=== PATIENT | female | born 1985 | race Caucasian/White ===

== ENCOUNTER 2023-12-10 13:14 | Outpatient (AMB) | payer OTHER, SELFPAY ==
--- NOTE | 2023-12-10 13:15 | A.OFFVIS_ITS ---
Vital Signs 12/10/23 13:16 Height 5 ft 5 in Weight 240 lb 4.862 oz BMI 40.0 BP 118/90 H Blood Pressure Location Lt brachial Position Sitting Pulse 95 Pulse Source Pulse Oximeter Intake Visit Reasons: PCOS, Obesity-lvm Intake Note: New patient present today for PCOS and obesity office visit. 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 Saw [facility] Reproductive Dr. Lantigua Menarche was age 11 . Menses have been irregular. Menses 2-3 per yr OCP use: in past but not recently Metformin use: Currently on Weight gain: . Weight loss occurred over 4 mos intentionally . Patient has tried diets of healthy eating . Exercises 1 mi /20 mintes day . Has tried weight loss medications. Has not seen a blast furnace helper Hirsutism/hyperandrogenism: On spironolactone for hiradenitis which has helped Not Trying to conceive/clomiphene: Ovarian U/S: Has T2DM or acanthosis: No but family hx of Type 2 DM Has sleep apnea , Not using CPAP Labs: [facility] Medical History (Updated 12/10/23 @ 14:07 by Zion Mac MD) Polycystic ovarian disease Obesity Surgical History (Updated 12/10/23 @ 13:24 by OZZIE Donohue) Hx of cholecystectomy Family History (Updated 12/10/23 @ 13:26 by OZZIE Donohue) Mother Hypertension Asthma Father Diabetes Stroke Thyroid disease Social History Alcohol intake: current Alcohol intake frequency: holidays/special occasions only Patient Tobacco Use Status: Never used Tobacco Physical Exam Const Other: There are no cushingoid features. Thyroid gland is normal size weighs about 15 g. There is no hair growth present Assessment & Plan Assessment & Plan (1) Hyperandrogenism: Code(s): E28.8 - Other ovarian dysfunction Plan: This is a 38-year-old female with a history of hyperandrogenism/PCOS and obesity. Rule out secondary causes. Currently being treated with metformin and spironolactone Plan is to check a TSH, free T4, testosterone, DHEA-S. Will send to blast furnace helper (2) Obesity: Code(s): E66.9 - Obesity, unspecified Category: Medical Plan: Treatment as per PCOS below (3) Polycystic ovarian disease: Code(s): E28.2 - Polycystic ovarian syndrome Category: Medical Plan: This is a 38-year-old white female with a history of polycystic ovarian syndrome previously worked up by reproductive endocrine. She has underlying obesity. She is currently being treated with metformin and spironolactone. The plan is to obtain the records reproductive endocrinology containing the previous workup for PCOS. We will continue the metformin and spironolactone. We will referred to our blast furnace helper. We will also startZepbound 2.5 mg Q weekly and titrate as tolerated. Went over side effects of Zepbound including but not limited to nausea, vomiting and rare risk of pancreatitis. Also talk to patient about talking to unhairing inspector about starting low-dose control pill . Also told patient to follow-up with sleep medicine for treatment of sleep apnea. Orders: Orders Hemoglobin A1c Today E66.9 - Obesity, unspecified Glucose Random Today E66.9 - Obesity, unspecified Referrals Nutrition/Dietitian Referral E66.9 - Obesity, unspecified Medications: New tirzepatide (weight loss) (Zepbound) 2.5 mg (0.5 mL) subcut QWEEK 4 weeks 2 mL 5RF Coding Level of Care Code New Pt Level 4 (53989) Diagnoses Hyperandrogenism E28.8 Obesity E66.9 Polycystic ovarian disease E28.2
[2023-12-10 13:16] VITALS: BP 118/90; PULSE 95; BMI 40.0
== END 2023-12-10 14:05 | disposition home or self-care (01) ==
PROVIDERS: PCP Nurse Practitioner Family; Visit Provider Internal Medicine Endocrinology, Diabetes & Metabolism
DX: E28.8 Other ovarian dysfunction (principal); E66.9 Obesity, unspecified; E28.2 Polycystic ovarian syndrome
CPT/HCPCS: 99204

== ENCOUNTER → 2023-12-10 13:14 | Outpatient (BNVA) | payer OTHER, SELFPAY | PROVIDERS: PCP Nurse Practitioner Family; Visit Provider Internal Medicine Endocrinology, Diabetes & Metabolism ==

== ENCOUNTER 2024-04-11 07:48 | Outpatient (AMB) | payer OTHER, SELFPAY ==
--- NOTE | 2024-04-11 07:56 | MHC.OFFVIS ---
Vital Signs 04/11/24 08:03 Height 5 ft 5 in Weight 216 lb 14.958 oz BMI 36.1 BP 126/68 Blood Pressure Location Rt brachial Position Sitting Pulse 94 Pulse Source Pulse Oximeter Intake Visit Reasons: f/u PCOS/obesity Intake Note: Patient present today for PCOS and Obesity follow up. 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 Saw [facility] Reproductive Dr. Lantigua Menarche was age 11 . Menses have been irregular. Menses 2-3 per yr OCP use: in past but not recently Metformin use: Currently on Weight gain: . Weight loss occurred over 4 mos intentionally . Patient has tried diets of healthy eating . Exercises 1 mi /20 mintes day . Has tried weight loss medications. Has not seen a assembler lay ups Hirsutism/hyperandrogenism: On spironolactone for hiradenitis which has helped Not Trying to conceive/clomiphene: Ovarian U/S: Has T2DM or acanthosis: No but family hx of Type 2 DM Has sleep apnea , Not using CPAP Labs: Saxenda 3 mg QD . Nl menses on BCP. Wt loss of 36 lbs. Hair growth controlled with sprironolactone . Needs to f/u with sleep medicine [facility] Medical History (Updated 12/10/23 @ 14:07 by Zion Mac MD) Polycystic ovarian disease Obesity Surgical History Hx of cholecystectomy Family History Mother Hypertension Asthma Father Diabetes Stroke Thyroid disease Social History Alcohol intake: current Alcohol intake frequency: holidays/special occasions only Patient Tobacco Use Status: Never used Tobacco Physical Exam Vital Signs: BMI result Body Mass Index 36.1 Assessment & Plan Assessment & Plan (1) Polycystic ovarian disease: Code(s): E28.2 - Polycystic ovarian syndrome Category: Medical Plan: This is a 39-year-old white female with a history of polycystic ovarian syndrome previously worked up by reproductive endocrine. She has underlying obesity. She is currently being treated with metformin and spironolactone as well as Saxenda. Insurance would not cover other G LP 1. The plan is to continue the current regimen. Also told patient to follow-up with sleep medicine for treatment of sleep apnea. Otherwise, at this point, patient can follow up with the primary care provider as well as practice consultant follow-up with endocrinology as needed Medications: Refilled liraglutide (weight loss) (Saxenda) subcutaneously daily; 1.8mg, starting 01/14/2024 . Starting 01/20 2.4 mg and 3mg starting 01/27 15 mL 5RF Coding Level of Care Code Est Pt Level 3 (38396) Diagnoses Polycystic ovarian disease E28.2
[2024-04-11 08:03] VITALS: BP 126/68; PULSE 94; BMI 36.1
== END 2024-04-11 08:15 | disposition home or self-care (01) ==
PROVIDERS: PCP Nurse Practitioner Family; Visit Provider Internal Medicine Endocrinology, Diabetes & Metabolism
DX: E28.2 Polycystic ovarian syndrome (principal)
CPT/HCPCS: 99213

== ENCOUNTER → 2024-04-11 07:48 | Outpatient (BNVA) | payer OTHER, SELFPAY | PROVIDERS: PCP Nurse Practitioner Family; Visit Provider Internal Medicine Endocrinology, Diabetes & Metabolism ==

== ENCOUNTER 2024-10-19 07:53 | Outpatient (AMB) | payer OTHER, SELFPAY ==
[2024-10-19 07:55] VITALS: BP 106/74; PULSE 74; O2SAT 100; BMI 31.3
--- NOTE | 2024-10-19 07:55 | A.OFFVIS_ITS ---
Vital Signs 10/19/24 07:55 Height 5 ft 5 in Weight 187 lb 13.341 oz BMI 31.3 BP 106/74 Blood Pressure Location Rt brachial Position Sitting Pulse 74 Pulse Source Pulse Oximeter Pulse Oximetry (%) 100 Oxygen Delivery Method Room Air Intake Visit Reasons: PCOS/Obesity Medication change Intake Note: Patient present today to re-establish care for PCOS/ Obesity. Director Of Automation Required: No Accompanied by: Self / Same As Patient Allergies Sulfa (Sulfonamide Antibiotics) Allergy (Intermediate, Verified 10/19/24 07:57) Rash letrozole Allergy (Mild, Verified 10/19/24 07:57) Dizziness HPI Comments Details: 39 YO Female with PMHx who is seen in consultation at the request of her PCP for[PCOS. Saw [facility] Reproductive Dr. Lantigua Menarche was age 11 . Menses have been irregular. Menses 2-3 per yr OCP use: in past but not recently Metformin use: Currently on Weight gain: . Weight loss occurred over 4 mos intentionally . Patient has tried diets of healthy eating . Exercises 1 mi /20 mintes day . Has tried weight loss medications. Has not seen a molder closed molds Hirsutism/hyperandrogenism: On spironolactone for hiradenitis which has helped Not Trying to conceive/clomiphene: Ovarian U/S: Has T2DM or acanthosis: No but family hx of Type 2 DM Has sleep apnea , Not using CPAP Labs: Saxenda 3 mg QD . Nl menses on BCP. Wt loss of 36 lbs. Hair growth controlled with sprironolactone . Wants to change from Saxenda to once weekly The patient is a 39-year-old female presenting with a request to switch from daily Saxenda to a once-weekly weight loss medication due to difficulty remembering daily doses. She has experienced significant weight loss with Saxenda, dropping from 250 to 187 pounds. Despite its effectiveness, the patient's demanding work schedule, involving two jobs, poses a challenge to daily compliance. Initial nausea with Saxenda has subsided over time. She has not engaged in nutritional counseling recently, which is essential for transitioning to other weight management medications. The patient is aware of potential insurance hurdles and cost implications with alternatives like Zepbound. She manages PCOS symptoms with Spironolactone and is considering an IUD for contraception. - Saxenda: Effective for weight loss, initial nausea resolved, compliance challenging due to daily dosing. - Spironolactone: Used for PCOS, effective in managing hair growth. [facility] Medical History (Updated 12/10/23 @ 14:07 by Zion Mac MD) Polycystic ovarian disease Obesity Surgical History Hx of cholecystectomy Family History Mother Hypertension Asthma Father Diabetes Stroke Thyroid disease Social History Alcohol intake: current Alcohol intake frequency: holidays/special occasions only Patient Tobacco Use Status: Never used Tobacco Physical Exam Vital Signs: BMI result Body Mass Index 31.3 Assessment & Plan Assessment & Plan (1) Polycystic ovarian disease: Code(s): E28.2 - Polycystic ovarian syndrome Category: Medical Plan: This is a 39-year-old white female with a history of polycystic ovarian syndrome previously worked up by reproductive endocrine. She has underlying obesity. She is currently being treated with metformin and spironolactone as well as Saxenda. Insurance would not cover other G LP 1. 1. Obesity The patient has successfully lost weight with Saxenda but struggles with daily dosing compliance. We discussed alternatives like Zepbound and Wegovy, considering insurance challenges and costs. Nutritional counseling is advised for six months to aid in medication approval. The patient may consider direct purchase of Zepbound if insurance denies coverage. 2. Polycystic Ovary Syndrome (PCOS) PCOS is managed with Spironolactone. The patient is considering an IUD for contraception. We discussed the benefits of estrogen-containing contraceptives for managing PCOS symptoms. The patient was warned once again not to get on the spironolactone We discussed the patient's desire to switch from Saxenda to a once-weekly weight loss medication due to challenges with daily compliance. I explained the effectiveness of Saxenda in achieving weight loss and the alternative options like Zepbound and Wegovy, while highlighting the potential insurance difficulties and costs. Nutritional counseling was recommended as a necessary step for medication approval. We also reviewed the management of PCOS with Spironolactone and discussed contraceptive options, including the benefits of an IUD and estrogen-containing contraceptives. The patient was informed about the risks, benefits, and alternatives of each option, and we agreed on a plan to pursue nutritional counseling and explore insurance options for a switch in medication. - Continue taking Saxenda as prescribed until further notice. - Schedule an appointment with a molder closed molds for counseling. - Consider insurance options for once-weekly weight loss medications. - Explore direct purchase options if insurance is denied. - Discuss contraceptive options with a floor covering printer, considering an IUD or estrogen-containing contraceptives. - Follow up in four months or sooner if there are any issues with medication access or management. The patient had an opportunity to ask questions regarding treatment plan. The patient expressed understanding and agreement with the above treatment plan. Patient was informed and verbally consented to the use of an ambient scribe for clinic note documentation during this visit. Orders: Referrals Nutrition/Dietitian Referral E28.2 - Polycystic ovarian syndrome, E66.9 - Obesity, unspecified Medications: New tirzepatide (weight loss) (Zepbound) for 4 weeks 2.5 mg (0.5 mL) subcut QWEEK 2 mL 5RF Discontinued liraglutide (weight loss) (Saxenda) Discontinued Reason: Doctor's Order subcutaneously daily; 1.8mg, starting 01/14/2024 . Starting 01/20 2.4 mg and 3mg starting 01/27 15 mL 5RF Coding Level of Care Code Est Pt Level 3 (61203) Diagnoses Polycystic ovarian disease E28.2
--- OUTSIDE RECORDS SUMMARY | 2024-10-19 07:55 | XMS_ITS ---
Author Name [facility] Organization Unknown Problems Problem Status Onset Date Problem Type Date of Resoluti on Source Morbid obesity (HCC) active EncounterDiagnosisAct [facility]
== END 2024-10-19 08:14 | disposition home or self-care (01) ==
LOC: HO.ENCR 07:53
PROVIDERS: PCP Nurse Practitioner Family; Visit Provider Internal Medicine Endocrinology, Diabetes & Metabolism
DX: E28.2 Polycystic ovarian syndrome (principal)
CPT/HCPCS: 99213

== ENCOUNTER → 2024-10-19 07:53 | Outpatient (BNVA) | payer OTHER, SELFPAY | PROVIDERS: PCP Nurse Practitioner Family; Visit Provider Internal Medicine Endocrinology, Diabetes & Metabolism ==

== ENCOUNTER 2025-02-21 07:53 | Outpatient (AMB) | payer OTHER, SELFPAY ==
--- NOTE | 2025-02-21 07:55 | A.OFFVIS_ITS ---
Vital Signs 02/21/25 07:57 Height 5 ft 5 in Weight 173 lb 8.061 oz BMI 28.9 BP 94/62 Blood Pressure Location Lt brachial Position Sitting Pulse 90 Pulse Source Pulse Oximeter Pulse Oximetry (%) 95 Oxygen Delivery Method Room Air Intake Visit Reasons: PCOS/Obesity Intake Note: Patient present today to for PCOS/ Obesity. 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 Accompanied by: Self / Same As Patient Allergies Sulfa (Sulfonamide Antibiotics) Allergy (Intermediate, Verified 02/21/25 07:58) Rash letrozole Allergy (Mild, Verified 02/21/25 07:58) Dizziness Medication List - Last Reconciled 02/21/25 by Zion Mac MD adalimumab-atto (Amjevita(CF) Autoinjector) 80 mg subcut Q2W desogestrel-ethinyl estradiol 0.15-0.03 mg (Apri) 1 tab PO DAILY inulin (Fiber Gummies) grams PO levocetirizine (Xyzal) 5 mg PO DAILY metformin ER 500 mg PO BID pen needle, diabetic (Comfort EZ Pen [place]) As directed spironolactone 100 mg PO DAILY tirzepatide (weight loss) (Zepbound) 7.5 mg (0.5 mL) subcut QWEEK HPI Comments Details: 40 YO Female with PMHx who is seen in consultation at the request of her PCP for[PCOS. Saw [facility] Reproductive Dr. Lantigua Menarche was age 11 . Menses have been irregular. Menses 2-3 per yr OCP use: in past but not recently Metformin use: Currently on Zepbound 7.5 mg Qwkly Weight gain: . Weight loss occurred over 4 mos intentionally . Patient has tried diets of healthy eating . Exercises 1 mi /20 mintes day . Has tried weight loss medications. Has not seen a time buyer Hirsutism/hyperandrogenism: On spironolactone for hiradenitis which has helped Not Trying to conceive/clomiphene: Ovarian U/S: Has T2DM or acanthosis: No but family hx of Type 2 DM Has sleep apnea , Not using CPAP Labs: Zepbound 7.5 mg Qwkly .abnl menses on BCP. Wt loss . Hair growth controlled with sprironolactone . Wants to change from Saxenda to once weekly - Spironolactone: Used for PCOS, effective in managing hair growth. The patient is a 40-year-old female presenting with weight management concerns. She is currently taking Zepbound 7.5 mg for weight management, which she has been on for a month and is tolerating well. Her goal weight is 160 pounds, and she has lost 15 pounds since the last visit. The patient reports hair growth, which is being managed with spironolactone, and she is tolerating the medication well. She is not using oral contraceptives due to potential interactions with her current medications and has an IUD in place. The patient had an IUD placed on January 17 and has not experienced a menstrual period since, although she had some bleeding post-insertion. There is a concern for endometrial cancer risk due to the lack of menstruation, which requires monitoring. [facility] Medical History (Updated 12/10/23 @ 14:07 by Zion Mac MD) Polycystic ovarian disease Obesity Surgical History Hx of cholecystectomy Family History Mother Hypertension Asthma Father Diabetes Stroke Thyroid disease Social History Alcohol intake: current Alcohol intake frequency: holidays/special occasions only Patient Tobacco Use Status: Never used Tobacco Physical Exam Vital Signs: Last Vital Signs Pulse 90 02/21/25 07:57 BP 94/62 02/21/25 07:57 Pulse Ox 95 02/21/25 07:57 Oxygen Delivery Method Room Air 02/21/25 07:57 BMI result Body Mass Index 28.9 Assessment & Plan Assessment & Plan (1) Polycystic ovarian disease: Code(s): E28.2 - Polycystic ovarian syndrome Category: Medical Plan: This is a 39-year-old white female with a history of polycystic ovarian syndrome previously worked up by reproductive endocrine. She has underlying obesity. She is currently being treated with metformin and spironolactone as well as Zepbound 7.5 mg . 1. Weight management The patient is currently on Zepbound 7.5 mg, which she tolerates well. She has lost 15 pounds since the last visit. The plan is to increase dose to 10 mg continue monitoring her weight and adjust the medication dosage as needed. Follow-up is recommended in six months, with earlier contact if necessary. 2. Hair growth Managed with spironolactone, which the patient tolerates well. No changes in medication are necessary at this time. 3. Menstrual irregularities The patient has not had a menstrual period since IUD insertion, raising concerns about endometrial cancer risk. Monitoring is advised to ensure uterine shedding occurs to mitigate this risk. During the visit, we discussed the patient's current weight management plan with Zepbound and her progress in losing 15 pounds. We also reviewed the management of hair growth with spironolactone and the implications of her menstrual irregularities post-IUD insertion. I advised monitoring for uterine shedding to prevent endometrial cancer risk. Follow-up is planned in six months, with the option for earlier contact if needed. The patient had an opportunity to ask questions regarding treatment plan. The patient expressed understanding and agreement with the above treatment plan. Patient was informed and verbally consented to the use of an ambient scribe for clinic note documentation during this visit. Orders: Orders Basic Metabolic Panel Today E28.2 - Polycystic ovarian syndrome Medications: New tirzepatide (weight loss) (Zepbound) 10 mg (0.5 mL) subcut QWEEK 2 mL 5RF tirzepatide (weight loss) (Zepbound) 10 mg (0.5 mL) subcut QWEEK 2 mL 5RF Discontinued tirzepatide (weight loss) (Zepbound) Discontinued Reason: Doctor's Order 7.5 mg (0.5 mL) subcut QWEEK 2 mL 3RF Coding Level of Care Code Est Pt Level 3 (71628) Diagnoses Polycystic ovarian disease E28.2
[2025-02-21 07:57] VITALS: BP 94/62; PULSE 90; O2SAT 95; BMI 28.9
--- OUTSIDE RECORDS SUMMARY | 2025-02-21 08:01 | XMS_ITS | Continuity of Care Document ---
Author Organization [facility] Address [address] [place] [id number] Insurance Providers Payer Plan Claims Address Claims Phone Policy Number Group Number Relation Employer Guarantor Name Guarantor Guarantor Address Guarantor Phone [facility] [place] [id number] Self Lea Pace 1985 [address] [place] [address] [facility] [place] [address] [facility] [address] [place] [address] [id number] Self Lea Pace 1985 [address] [place] [address] Problems Condition ICD9 code ICD10 code SNOMED code Start Date End Date S tatus Encounter for screening for other metabolic disorders Z13.228 Results No Results Allergies, adverse reactions, alerts No known allergies and adverse reactions Medications No administered medications reported Vital Signs No vital signs reported Social History No smoking Hx information available
--- OUTSIDE RECORDS SUMMARY | 2025-02-21 08:01 | XMS_ITS | Continuity of Care Document ---
Author Organization [facility] Address [address] [place] [id number] Insurance Providers Payer Plan Claims Address Claims Phone Policy Number Group Number Relation Employer Guarantor Name Guarantor Guarantor Address Guarantor Phone [facility] [id number] Self Lae Pace 1985 [address] [place] [address] [facility] [place] [address] [facility] [address], [place] [address] [id number] Self Lea Pace 1985 [address] [place] [address] Problems Condition ICD9 code ICD10 code SNOMED code Start Date End Date S tatus Encounter for screening for other metabolic disorders Z13.228 Results No Results Allergies, adverse reactions, alerts No known allergies and adverse reactions Medications No administered medications reported Vital Signs No vital signs reported Social History No smoking Hx information available
--- OUTSIDE RECORDS SUMMARY | 2025-02-21 08:01 | XMS_ITS | Clinical Summary ---
Author Organization [facility] Address [address] [place] [address] Care Team Providers Care Aqueduct And Reservoir Keeper Name Role Phone Unavailable Primary Care Provider Unavailabl e Social History Tobacco Use Types Packs/Day Years Used Date Smoking Tobacco: Never Assessed Comments Unknown Sex and Gender Information Value Date Recorded Sex Assigned at Not on file Legal Sex Female 6:33 PM EST Gender Identity Not on file Sexual Orientation Not on file Plan of Treatment Health Maintenance Due Date Last Done Comments Hepatitis C Virus Screening 1985 HIV Screening 01/04/1996 DTaP/Tdap/Td Vaccines (1 - Tdap) 2002 Hepatitis B Vaccines (1 of 3 - 19+ 3-dose series) 2002 HPV Vaccines (1 - 3-dose SCD M series) 2010 COVID-19 Vaccine ( - 2023-2 5 season) 2025 Pneumococcal Vaccine: Pediat anastacio (0-5 Years) and At-Risk Patients (6 to 49 Years) Aged Out No longer eligible b ased on patient's age to complete this topic
== END 2025-02-21 08:18 | disposition home or self-care (01) ==
LOC: HO.ENCR 07:54
PROVIDERS: PCP Nurse Practitioner Family; Visit Provider Internal Medicine Endocrinology, Diabetes & Metabolism
DX: E28.2 Polycystic ovarian syndrome (principal)
CPT/HCPCS: 99213

== ENCOUNTER 2025-02-21 08:24 | Outpatient (REF) | payer OTHER, SELFPAY ==
[2025-02-21 11:34] LABS: Anion Gap 9 (12-20); Blood Urea Nitrogen 13 mg/dL (9-16); Calcium 8.5 mg/dL (8.4-10.2); Carbon Dioxide 27 mmol/L (22-29); Chloride 107 mmol/L (96-108); Estimated Glomerular Filt Rate > 60; Potassium 3.8 mmol/L (3.3-5.1); Sodium 139 mmol/L (135-145)
== END 2025-02-21 08:25 | disposition home or self-care (01) ==
LOC: HO.10HDL 08:24
PROVIDERS: Visit Provider Internal Medicine Endocrinology, Diabetes & Metabolism
DX: E28.2 Polycystic ovarian syndrome (principal)
CPT/HCPCS: 36415; 80048